=== PATIENT | male | born 1980 ===

== ENCOUNTER 2017-06-12 19:25 | Emergency (ER) | payer SELFPAY ==
--- NOTE | 2017-06-12 19:33 | PDOC ---
History of Present Illness - History of Present Illness Initial Comments: 06/12/17 19:59 37 y.o male with PMH of IDDM, who was brought in by [facility] [employer] after found wandering around intoxicated. Pt walked into the ED and was responsive but is a poor historian. He states that he lives in [place], but came to [facility] to have a drink with friends. He reports having 40 ounces of beer. Review of Systems General: No fevers or chills, no weakness HEENT: No change in vision. No sore throat, No ear pain Cardiovascular: No chest pain or shortness of breath Gastrointestinal: No nausea, vomiting, diarrhea or constipation, No rectal bleeding Neurologic: No headache, vertigo, dizziness or loss of consciousness Psychiatric: No depression Skin: No rashes or easy bruising Physical Exam GENERAL: The patient is drowsy, but arousable and answers questions appropriately. +alcohol on breath HEAD: Normal with no signs of trauma. EYES: Pupils equal, round and reactive to light, extraocular movements intact, sclera anicteric, conjunctiva clear. EXTREMITIES: Normal range of motion, no edema. NEUROLOGICAL: Normal speech SKIN: Warm, Dry, normal turgor, no rashes or lesions noted. <Dixie Csatro - Last Filed: 06/12/17 19:59> - General History Source: Patient Exam Limitations: Language Barrier - History of Present Illness Initial Comments: A portion of this note was documented by scribe services under my direction. I have reviewed the details of the note, within reason, and agree with the documentation. The case summary and management plan written by me. 21:00 Patient resting comfortably, arousable no complaints patient's blood alcohol level came back at 312, patient's fingerstick blood sugar on arrival was 376. 06/12/17 22:40 Patient awake alert, ambulated to the bathroom without difficulty. Patient has received 2 L of fluid and his repeat fingerstick blood sugar is 248. Patient's brother was called who will come to the emergency room and pick him up and take him home and be responsible for him overnight. Timing/Duration: unsure <Elinor Sunshine I - Last Filed: 06/12/17 23:38> - General Chief Complaint: Alcohol intoxication Stated Complaint: Brought in by police intox Time Seen by Provider: 06/12/17 19:32 Past History <Dixie Castro - Last Filed: 06/12/17 19:59> <Elinor Sunshine I - Last Filed: 06/12/17 23:38> - Past Medical History Allergies/Adverse Reactions: Allergies Allergy/AdvReac Type Severity Reaction Status Date / Time No Known Allergies Allergy Verified 06/12/17 19:31 Home Medications: Ambulatory Orders Insulin NPH [Novolin N Vial] 12 units SQ DAILY 06/12/17 *Physical Exam - Vital Signs Last Vital Signs Temp Pulse Resp BP Pulse Ox 98.4 F 103 H 18 133/90 99 06/12/17 19:33 06/12/17 19:33 06/12/17 19:33 06/12/17 19:33 06/12/17 19:33 <Dixie Castro - Last Filed: 06/12/17 19:59> ED Treatment Course - LABORATORY CBC & Chemistry Diagram: 06/12/17 19:49 06/12/17 19:49 <Dixie Castro - Last Filed: 06/12/17 19:59> - LABORATORY CBC & Chemistry Diagram: 06/12/17 19:49 06/12/17 19:49 <Elinor Sunshine I - Last Filed: 06/12/17 23:38> *DC/Admit/Observation/Transfer - Attestations Scribe Attestion: 06/12/17 20:02 Documentation prepared by ROSLYN Ford, acting as medical records coordinator for Elinor Sunshine MD. <Dixie Castro - Last Filed: 06/12/17 19:59> - Discharge Dispostion Admit: No <Elinor Sunshine I - Last Filed: 06/12/17 23:38> Diagnosis at time of Disposition: Alcohol intoxication Qualifiers: Complication of substance-induced condition: uncomplicated Qualified Code(s): F10.920 - Alcohol use, unspecified with intoxication, uncomplicated - Discharge Dispostion Disposition: HOME Condition at time of disposition: Good - Patient Instructions Printed Discharge Instructions: DI for Alcohol Abuse Additional Instructions: Return to the emergency department immediately with ANY new, persistent or worsening symptoms. Continue any medications as previously prescribed by your physician. You should follow up with your primary doctor as soon as possible regarding today's emergency department visit. . Please make sure your doctor reviews the results of your emergency evaluation. Thank you for coming to the Emergency Department today for your care. It was a pleasure to see you today. Please note that your evaluation is INCOMPLETE until you follow-up with your doctor.
[2017-06-12] MEDS ORDERED: SODIUM CHLORIDE 1,000 ML IV ONE ×2 (19:52→19:53)
[2017-06-12 19:57] VITALS: TEMP 98.4; BMI 24.2
[2017-06-12 20:05] LABS: BASO % 0.4 % (0-2.0); EOS % 0.3 % (0-4.5); MCHC 33.2 g/dl (32.0-35.9); MEAN CELL VOLUME 84.3 fl (80-96); MEAN PLT VOLUME 8.6 fl (7.5-11.1); NEUT % 50.6 % (42.8-82.8); PLATELET COUNT 286 K/MM3 (134-434); RDW 13.5 % (11.9-15.9); WHITE BLOOD COUNT 5.7 K/mm3 (4.0-10.8)
[2017-06-12 20:24] LABS: ALBUMIN 4.3 g/dl (3.5-5.0); ALK PHOS 122 U/L (32-92); ANION GAP 15 (8-16); BILIRUBIN,TOTAL 0.4 mg/dl (0.2-1.0); CALCIUM 9.5 mg/dl (8.4-10.2); CO2 21 mmol/L (22-28); CREATININE 0.5 mg/dl (0.6-1.3); SGOT/AST 40 U/L (10-42); SGPT/ALT 41 U/L (10-40); TOT PROT 7.1 g/dl (6.4-8.3)
[2017-06-12 20:28] LABS: GLUCOSE,RANDOM 390 mg/dl (74-106)
[2017-06-12] MEDS ORDERED: HEMOQUE TEST 1 EACH EACH ONE ×2 (21:01→21:05)
[2017-06-12 22:37] VITALS: BP 124/72; PULSE 77
== END 2017-06-12 23:41 | disposition home or self-care (01) ==
LOC: FER 19:25
PROC: 3E0337Z Introduction of Electrolytic and Water Balance Substance into Peripheral Vein, Percutaneous Approach (ICD-10-PCS; principal; 2017-06-12)
DX: F10.920 Alcohol use, unspecified with intoxication, uncomplicated (principal); E11.9 Type 2 diabetes mellitus without complications
CPT/HCPCS: 36415; 80053; 80307; 85025; 99284-25